=== PATIENT | female | born 1965 | race Two or more races ===

== ENCOUNTER 2023-01-10 07:55 | Emergency (ER) | payer MEDICAID ==
[~2023-01-10] VITALS: Ht 160 cm; Wt 75.0 kg
[2023-01-10 07:59] VITALS: O2SAT 96
[2023-01-10] MEDS ORDERED: IBUPROFEN 600MG TABLET PO ONE (08:15)
[2023-01-10] MEDS ORDERED: IBUP-2029 MT (09:30)
[2023-01-10 09:44] VITALS: BP 35/86; PULSE 62; RESP 18; TEMP 98.1
== END 2023-01-10 09:45 | disposition home or self-care (01) ==
LOC: ER 07:55
DX: R10.31 Right lower quadrant pain (principal); M25.561 Pain in right knee; E11.9 Type 2 diabetes mellitus without complications; V49.9XXA Car occupant (driver) (passenger) injured in unspecified traffic accident, initial encounter; Y93.89 Activity, other specified; Y92.89 Other specified places as the place of occurrence of the external cause; Y99.8 Other external cause status
CPT/HCPCS: 71045; 73560; 74018; 99284